=== PATIENT | female | born 2000 | race Caucasian/White ===

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

== ENCOUNTER 2022-02-03 22:30 | Emergency (ER) | payer OTHER ==
[~2022-02-03] VITALS: Ht 157.5 cm; Wt 76.2 kg
[2022-02-03 22:49] VITALS: BP 110/74
--- NOTE | 2022-02-03 22:51 | NUR ---
TO BE LOBBY A/W BED AMBULATORY
--- NOTE | 2022-02-03 23:04 | NUR ---
PT AMBULATE TO ROOM 2
[2022-02-03 23:14] LABS: BASOPHILS % (AUTO) 0.1 % (0.0-2.0); EOSINOPHILS % (AUTO) 0.3 % (0.0-4.0); HEMATOCRIT 31.5 % (36-48); HEMOGLOBIN 10.1 g/dL (12.0-16.0); LYMPHOCYTES # (AUTO) 2.7 K/uL (2.5-16.5); LYMPHOCYTES % (AUTO) 35.1 % (20.5-51.1); MEAN CORPUSCULAR HEMOGLOBIN 24 pg (27-31); MEAN CORPUSCULAR HGB CONC 32 g/dL (33-37); MEAN CORPUSCULAR VOLUME 73.7 fL (80-94); MONOCYTES # (AUTO) 0.5 K/uL (0.8-1.0); MONOCYTES % (AUTO) 6.4 % (1.7-9.3); NEUTROPHILS # (AUTO) 4.6 K/uL (1.8-7.7); NEUTROPHILS % (AUTO) 58.1 % (42.2-75.2); PLATELET COUNT (AUTO) 267 K/uL (140-450); RED BLOOD CELL COUNT(AUTO) 4.27 MIL/uL (4.20-5.40); RED CELL DISTRIBUTION WIDTH 18.4 % (11.6-13.7); WHITE BLOOD COUNT (AUTO) 7.8 K/uL (4.5-11.0)
[2022-02-03] MEDS ORDERED: ACETAMINOPHEN EXTRA STRENGTH 500 MG TAB PO ONE (23:35)
[2022-02-03] MEDS ORDERED: IBUPROFEN 600 MG TAB PO ONE (23:35)
[2022-02-03 23:39] LABS: ALBUMIN 3.5 g/dL (3.4-5.0); ANION GAP 12.8 (8-16); CARBON DIOXIDE 27.6 mmol/L (21-32); CREATININE 0.9 mg/dL (0.6-1.3); POTASSIUM 3.4 mmol/L (3.5-5.1); TOTAL BILIRUBIN 0.3 mg/dL (0.0-1.0)
--- NOTE | 2022-02-03 23:52 | NUR ---
URINE COLLECTED AND SENT TO LAB
--- NOTE | 2022-02-03 23:59 | NUR ---
ULTRASOUND AT BEDSIDE
[2022-02-04 00:30] LABS: APPEARANCE,URINE CLEAR (CLEAR); BILIRUBIN,URINE NEGATIVE (NEGATIVE); BLOOD, URINE NEGATIVE (NEGATIVE); COLOR,URINE YELLOW (YELLOW); LEUKOCYTE ESTERASE ,URINE NEGATIVE (NEGATIVE); NITRITE, URINE NEGATIVE (NEGATIVE); UGLUCOSE NEGATIVE (NEGATIVE)
--- NOTE | 2022-02-04 01:30 | NUR ---
PT RESTING, NO S/S OF DISTRESS NOTED. MOTHER WITH PT AT BEDSIDE. VSS. PT UPDATED ON POC WITH FULL RETURNED VERBAL UNDERSTANDING. WILL CONTINUE TO MONITOR.
--- NOTE | 2022-02-04 03:22 | NUR ---
Patient discharged with v/s stable. Written and verbal after care instructions given and explained. Patient verbalized understanding. Ambulatory with steady gait. All questions addressed prior to discharge. Advised to follow up with PMD.
--- NOTE | 2022-02-04 03:28 | NUR ---
The patient's care was reviewed and supervised by Melania Singh RN, RN.
== END 2022-02-04 03:22 | disposition home or self-care (01) ==
LOC: MED 22:30
DX: D25.9 Leiomyoma of uterus, unspecified (principal); R11.0 Nausea
CPT/HCPCS: 36415; 76830; 80053; 81003; 81025; 83690; 85025; 99283; Q0092

== ENCOUNTER 2022-02-28 17:00 | Emergency (ER) | payer OTHER ==
[~2022-02-28] VITALS: Ht 157.5 cm; Wt 72.6 kg
[2022-02-28 17:15] VITALS: BP 132/79
--- NOTE | 2022-02-28 17:22 | NUR ---
called in lobby and outside, no answer at this time
[2022-02-28] MEDS ORDERED: NACL 0.9% 1,000 ML IV ONE (17:35)
[2022-02-28] MEDS ORDERED: ACETAMINOPHEN 100 ML IV PRN (17:35)
--- NOTE | 2022-02-28 17:38 | NUR ---
Ultrasound at bedside.
[2022-02-28 17:58] LABS: BASOPHILS % (AUTO) 0.4 % (0.0-2.0); EOSINOPHILS # (AUTO) 0.1 K/uL (0-0.4); EOSINOPHILS % (AUTO) 0.7 % (0.0-4.0); HEMATOCRIT 36.4 % (36-48); HEMOGLOBIN 11.6 g/dL (12.0-16.0); LYMPHOCYTES # (AUTO) 2.4 K/uL (2.5-16.5); LYMPHOCYTES % (AUTO) 30.1 % (20.5-51.1); MEAN CORPUSCULAR HEMOGLOBIN 24 pg (27-31); MEAN CORPUSCULAR HGB CONC 32 g/dL (33-37); MEAN CORPUSCULAR VOLUME 74.5 fL (80-94); MONOCYTES # (AUTO) 0.5 K/uL (0.8-1.0); MONOCYTES % (AUTO) 6.3 % (1.7-9.3); NEUTROPHILS # (AUTO) 5.1 K/uL (1.8-7.7); NEUTROPHILS % (AUTO) 62.5 % (42.2-75.2); PLATELET COUNT (AUTO) 274 K/uL (140-450); RED BLOOD CELL COUNT(AUTO) 4.88 MIL/uL (4.20-5.40); RED CELL DISTRIBUTION WIDTH 18.1 % (11.6-13.7); WHITE BLOOD COUNT (AUTO) 8.1 K/uL (4.5-11.0)
[2022-02-28] MEDS: ONDANSETRON 4 MG/2 ML VIAL IVP ONE ×2 (18:23→18:25)
[2022-02-28 18:25] LABS: ALBUMIN 3.6 g/dL (3.4-5.0); ANION GAP 12.7 (8-16); CARBON DIOXIDE 28.7 mmol/L (21-32); CREATININE 0.6 mg/dL (0.6-1.3); POTASSIUM 3.4 mmol/L (3.5-5.1); TOTAL BILIRUBIN 0.2 mg/dL (0.0-1.0)
--- NOTE | 2022-02-28 18:25 | NUR ---
pt denies nausea, zofran returned to pyxis at this time
[2022-02-28] MEDS ORDERED: KETOROLAC 30 MG/ML VIAL IVP ONE (18:30)
--- NOTE | 2022-02-28 18:41 | NUR ---
22 y/o female, c/o sudden onset of intermittent crampy mid abdominal pain that started this morning. states she is currently sexual active with 1 partner, no concerns of STIs. lmp was early this month. denies nausea, vomiting, diarrhea. skin is pink/warm/dry. a&o x4 with even and steady gait. pt denies dysuria, hematuria, urinary frequency or retention, or anyone sick in the household with the same symptoms. pt denies any fever, cp, sob, or cough at this time. pt states pain is 6/10 at this time. vss. patient positioned for comfort. hob elevated. bed down. ermd made aware of pt. pmh: asthma, fibroids nka
[2022-02-28 19:06] LABS: APPEARANCE,URINE CLEAR (CLEAR); BILIRUBIN,URINE NEGATIVE (NEGATIVE); BLOOD, URINE NEGATIVE (NEGATIVE); COLOR,URINE YELLOW (YELLOW); LEUKOCYTE ESTERASE ,URINE NEGATIVE (NEGATIVE); NITRITE, URINE NEGATIVE (NEGATIVE); PH,URINE 6.5 (5.0-9.0); UGLUCOSE NEGATIVE (NEGATIVE)
[2022-02-28] MEDS ORDERED: ONDA-188 PO (19:17)
[2022-02-28] MEDS ORDERED: NAPR-54 PO (19:17)
[2022-02-28 19:40] VITALS: BP 123/81
--- NOTE | 2022-02-28 19:40 | NUR ---
Patient discharged with v/s stable. Written and verbal after care instructions given and explained. Patient alert, oriented and verbalized understanding of instructions. Ambulatory with steady gait. All questions addressed prior to discharge. ID band removed. Patient advised to follow up with PMD. Rx of Naproxen and Zofran given. Patient educated on indication of medication including possible reaction and side effects. Opportunity to ask questions provided and answered.
== END 2022-02-28 19:40 | disposition home or self-care (01) ==
LOC: MED 17:00
DX: D25.9 Leiomyoma of uterus, unspecified (principal); R10.9 Unspecified abdominal pain; J45.909 Unspecified asthma, uncomplicated
CPT/HCPCS: 36415; 76856; 80053; 81003; 81025; 85025; 87086; 93976; 96360; 99284; J1885; J7030; J2405

== ENCOUNTER 2022-03-12 17:42 | Emergency (ER) | payer OTHER ==
[~2022-03-12] VITALS: Ht 157.5 cm; Wt 75.7 kg
[~2022-03-12 17:42] MED LIST: NAPR-54 PO; ONDA-188 PO
[2022-03-12 18:03] VITALS: BP 115/69
--- NOTE | 2022-03-12 18:09 | NUR ---
COVID,FLU SWABS DONE
--- NOTE | 2022-03-12 18:20 | NUR ---
BIB SELF C/O COUGH, FEVER, N/V, SORE THROAT, LOSS OF APPITITE X 3 DAYS. PMH: DENIES
--- NOTE | 2022-03-12 21:30 | NUR ---
Called no show in lobby or outside.
--- NOTE | 2022-03-12 21:34 | NUR ---
PATIENT LEFT WITHOUT BEING SEEN BY DR. Alicea. NO FURTHER CARE PROVIDED FOR PATIENT.
== END 2022-03-12 21:30 | disposition left against medical advice (07) ==
LOC: MED 17:42
DX: R05.9 Cough, unspecified (principal); Z20.822 Contact with and (suspected) exposure to COVID-19; R50.9 Fever, unspecified; R11.2 Nausea with vomiting, unspecified; J02.9 Acute pharyngitis, unspecified; R63.0 Anorexia; Z53.21 Procedure and treatment not carried out due to patient leaving prior to being seen by health care provider